=== PATIENT | male | born 1995 | race African-American/Black ===

== ENCOUNTER 2017-02-01 13:59 | Emergency (ER) | payer SELFPAY | END 2017-02-01 15:07 | LOC: JD.ED 13:59 | DX: Z53.21 Procedure and treatment not carried out due to patient leaving prior to being seen by health care provider (principal) ==

== ENCOUNTER 2017-07-07 09:49 | Emergency (ER) | payer SELFPAY ==
[2017-07-07 09:57] VITALS: BP 134/83
--- NOTE | 2017-07-07 10:30 | EDM.PDOC ---
<Celine Hennessy - Last Filed: 07/07/17 10:25> ED HPI GENERAL MEDICAL PROBLEM - General Chief Complaint: Skin Complaint Stated Complaint: SWOLLEN LIP Time Seen by Provider: 07/07/17 10:20 Source of Information: Reports: Patient History Limitations: Reports: No Limitations - History of Present Illness INITIAL COMMENTS - FREE TEXT/NARRATIVE: Patient is a 22 YO male who presents today with upper lip swelling. He states he noticed this on Thursday and is described as throbbing. He states he can feel a bump in the lip. He was seen at the walk-in clinic on Thursday and prescribed an antibiotic ointment. He was not able to afford this prescription. He has not tried any over the counter pain relievers. He denies sores in the mouth or tooth pain. Denies fever or chills. - Related Data Allergies Allergy/AdvReac Type Severity Reaction Status Date / Time mushroom Allergy Swelling Verified 07/07/17 09:57 Home Meds: Home Meds Doxycycline [Vibramycin] 100 mg PO BID #20 cap 07/07/17 [Rx] Past Medical History - Past Health History Medical/Surgical History: Denies Medical/Surgical History Social & Family History - Family History Family Medical History: Noncontributory - Tobacco Use Smoking Status *Q: Current Every Day Smoker Years of Tobacco use: 3 Packs/Tins Daily: 0.1 Used Tobacco, but Quit: No Second Hand Smoke Exposure: Yes - Caffeine Use Caffeine Use: Reports: Coffee, Soda, Tea Other Caffeine Use: 3/week - Recreational Drug Use Recreational Drug Use: No ED ROS GENERAL - Review of Systems Review Of Systems: See Below Constitutional: Reports: No Symptoms HEENT: Reports: Other (upper lip swelling) Respiratory: Reports: No Symptoms Cardiovascular: Reports: No Symptoms Skin: Reports: No Symptoms Neurological: Reports: No Symptoms Psychiatric: Reports: No Symptoms ED EXAM, SKIN/RASH Exam: See Below Exam Limited By: No Limitations General Appearance: Alert, WD/WN, No Apparent Distress Eye Exam: Bilateral Eye: EOMI, PERRL Throat/Mouth: Normal Teeth, Normal Gums, Normal Oropharynx, Other (pea sized swelling on the right side in the soft tissues superior to the vermilion border. Tender to palpation. no visible finding on the skin or inside the lip. ) Head: Atraumatic Respiratory/Chest: No Respiratory Distress, Lungs Clear Neurological: Alert, Oriented, CN II-XII Intact, Normal Cognition, No Motor/ Sensory Deficits Psychiatric: Normal Affect, Normal Mood Skin: Warm, Dry, Intact, Normal Color, No Rash Location, Skin: Face Course - Vital Signs Last Recorded V/S: Last Vital Signs Temp 37.1 C 07/07/17 09:54 Pulse 62 07/07/17 09:54 Resp 17 07/07/17 09:54 BP 134/83 07/07/17 09:54 Pulse Ox 17 L 07/07/17 09:54 - Orders/Labs/Meds Meds: Medications Discontinued Medications Generic Name Dose Route Start Last Admin Trade Name Freq PRN Reason Stop Dose Admin Doxycycline Hyclate 200 mg 07/07/17 10:32 07/07/17 10:54 Vibramycin PO 07/07/17 10:33 200 mg ONETIME ONE Administration Departure - Departure Disposition: Home, Self-Care 01 Clinical Impression: Infected sebaceous cyst of skin - Discharge Information Prescriptions: Doxycycline [Vibramycin] 100 mg PO BID #20 cap Instructions: Epidermal Cyst, [id number] Referrals: PCP,None [Primary Care Provider] - Forms: ED Department Discharge, ED Return to Work/School Form Additional Instructions: Evaluation in the emergency him today in regards to an infected sebaceous cyst up underneath your right midline of lip. This is only noted when you feel it through the lip tissue. Treatment is antibiotic doxycycline 100 mg twice daily for the next 10 days. First tablets were provided in the ED today. Next tablet would be due after supper tonight. Expect marked improvement over the next 72 hours. May use Motrin or ibuprofen 600 mg every 6 hours if needed for pain relief. The swelling should go down completely within 10 days. There is a small chance her risk of it coming back. <Nilesh Holguin L - Last Filed: 07/07/17 11:59> ED HPI GENERAL MEDICAL PROBLEM - History of Present Illness Onset Date: 07/03/17 (Started 3 days ago and it's gradually becoming more painful and irritating. No trauma to the area.) Duration: Day(s): Location: Reports: Face Quality: Reports: Ache (Columella area on the right side of the midline), Throbbing Severity: Moderate Improves with: Reports: None Worsens with: Reports: Other Context: Denies: Activity (Touching the area hurts.), Exercise, Lifting, Sick Contact, Trauma, Other Associated Symptoms: Reports: No Other Symptoms Treatments CONSOLE OPERATOR: Reports: Other (see below) (None.) Social & Family History - Living Situation & Occupation Living situation: Reports: Single Occupation: Employed ED ROS GENERAL - Review of Systems Endocrine: Reports: No Symptoms GI/Abdominal: Reports: No Symptoms : Reports: No Symptoms Course - Orders/Labs/Meds Meds: Medications Discontinued Medications Generic Name Dose Route Start Last Admin Trade Name Tiffanie PRN Reason Stop Dose Admin Doxycycline Hyclate 200 mg 07/07/17 10:32 07/07/17 10:54 Vibramycin PO 07/07/17 10:33 200 mg ONETIME ONE Administration - Radiology Interpretation Free Text/Narrative:: 22-year-old male presents to the ED with a painful swelling in his right upper lip. Examination reveals this to be an infected sebaceous cyst likely initiated by hair follicle in his mustache. The swelling is not visible but only probable on palpation of the columella area. He has a pea-sized painful lesion just to the right of the columella. This will be treated with doxycycline 100 mg twice daily for the next 10 days with the initial 2 tabs provided in the ED. Patient indicates he doesn't have any money to pay for medication at this time. Will contact aids social worker to see if they can help out in this regard. - Re-Assessments/Exams Free Text/Narrative Re-Assessment/Exam: 07/07/17 10:48: family service caseworker was not able to help us out. Therefore I gave him $20 out of my personal funds for purchasing doxycycline 100 mg twice daily for the next 10 days. We phoned [facility] and this with a charge for 10 day supply of doxycycline 100 mg stregth. Departure - Departure Time of Disposition: 10:45 Condition: Fair
[2017-07-07] MEDS ORDERED: Doxycycline 100 MG Cap PO ONE (10:32)
== END 2017-07-07 10:55 | disposition home or self-care (01) ==
LOC: JD.ED 09:49
DX: L72.3 Sebaceous cyst (principal); F17.210 Nicotine dependence, cigarettes, uncomplicated; Z91.018 Allergy to other foods
CPT/HCPCS: 99283; A9270

== ENCOUNTER 2017-08-01 16:00 | Emergency (ER) | payer SELFPAY ==
[2017-08-01 16:18] VITALS: BP 133/74
[2017-08-01] MEDS ORDERED: Doxycycline 100 MG Cap PO ONE (17:18)
--- NOTE | 2017-08-01 17:20 | EDM.PDOC ---
ED HPI GENERAL MEDICAL PROBLEM - General Chief Complaint: Skin Complaint Stated Complaint: CYST PAIN ON RIGHT LEG Time Seen by Provider: 08/01/17 17:14 Source of Information: Reports: Patient History Limitations: Reports: No Limitations - History of Present Illness INITIAL COMMENTS - FREE TEXT/NARRATIVE: Patient is a 22-year-old male presents ED complaining of a lesion to the right inner leg. States he started to feel a small bump to this location. Over the next few days ago progressed to got worse after scratching it. States 2 days ago developed draining pus from the site. Site continues to drain. Discovered him currently. He has no history of MRSA. There is no no fever, redness streaking up his leg, or other abscesses as such. He is currently taking no medications. He has no pertinent past medical history. Smokes one pack every 3 days. Alcohol use occasionally. Recreational drug use none. Right Upper Leg Pain Score (Numeric/FACES): 7 - Related Data Allergies Allergy/AdvReac Type Severity Reaction Status Date / Time mushroom Allergy Swelling Verified 07/07/17 09:57 Home Meds: Home Meds Doxycycline [Vibramycin] 100 mg PO BID #20 cap 08/01/17 [Rx] Past Medical History - Past Health History Medical/Surgical History: Denies Medical/Surgical History Social & Family History - Family History Family Medical History: Noncontributory - Tobacco Use Smoking Status *Q: Current Every Day Smoker Years of Tobacco use: 3 Packs/Tins Daily: 0.3 - Caffeine Use Caffeine Use: Reports: Soda Other Caffeine Use: 3/week - Recreational Drug Use Recreational Drug Use: No - Living Situation & Occupation Living situation: Reports: Single Occupation: Employed ED ROS GENERAL - Review of Systems Review Of Systems: ROS reveals no pertinent complaints other than HPI. ED EXAM, SKIN/RASH Exam: See Below Exam Limited By: No Limitations General Appearance: Alert, WD/WN, No Apparent Distress Ears: Hearing Grossly Normal Nose: Normal Inspection Throat/Mouth: Normal Voice, No Airway Compromise Neck: Normal Inspection, Supple Respiratory/Chest: No Respiratory Distress, No Accessory Muscle Use Extremities: Other (Small 3 cm x 3 cm indurated skin lesion with small amount of purulent pus from the middle. Portion of it is deroofed. Pain with palpation. Unable to express any additional pus.) Course - Vital Signs Last Recorded V/S: Last Vital Signs Temp 99.2 F 05/26/18 16:13 Pulse 85 08/01/17 16:13 Resp 18 08/01/17 16:13 BP 133/74 08/01/17 16:13 Pulse Ox 96 08/01/17 16:13 - Orders/Labs/Meds Meds: Medications Discontinued Medications Generic Name Dose Route Start Last Admin Trade Name Tiffanie PRN Reason Stop Dose Admin Doxycycline Hyclate 200 mg 08/01/17 17:18 08/01/17 17:38 Vibramycin PO 08/01/17 17:19 200 mg ONETIME ONE Administration - Re-Assessments/Exams Free Text/Narrative Re-Assessment/Exam: Patient has approximately 3 cm x 3 cm indurated area with central opening with mild amount of pus present. No I&D required. Ordered doxycycline 200 mg by mouth. Discharge instructions as documented. Departure - Departure Time of Disposition: 17:18 Disposition: Home, Self-Care 01 Condition: Good Clinical Impression: Skin abscess Qualifiers: Site of cutaneous abscess: extremity Site of cutaneous abscess of extremity: lower extremity Laterality: right Qualified Code(s): L02.415 - Cutaneous abscess of right lower limb - Discharge Information Prescriptions: Doxycycline [Vibramycin] 100 mg PO BID #20 cap Instructions: Skin Abscess Referrals: PCP,None [Primary Care Provider] - Forms: ED Department Discharge, ED Return to Work/School Form Additional Instructions: Take the doxycycline as prescribed 1 tablet twice a day for 10 days. Apply warm compresses to the affected area 3 times a day for 30 minutes. Keep area clean and dry. Cover if draining. Return to the ED if you develop any new or worsening symptoms.
== END 2017-08-01 17:35 | disposition home or self-care (01) ==
LOC: JD.ED 16:00
DX: L02.415 Cutaneous abscess of right lower limb (principal); F17.210 Nicotine dependence, cigarettes, uncomplicated; Z91.018 Allergy to other foods
CPT/HCPCS: 99283; A9270